=== PATIENT | male | born 1980 | race Caucasian/White ===

== ENCOUNTER 2016-09-26 14:26 | Emergency (ER) | payer BC, OTHER ==
[2016-09-26 14:40] VITALS: BP 140/102
--- NOTE | 2016-09-26 15:26 | XRay Report ---
BILATERAL KNEES, 2 VIEWS History: Pain after fall. Findings: Minimal osteoarthritic changes are identified in both knees. No evidence for fracture, bone lesion or joint effusion. Impression: Minimal degenerative changes. No acute process.
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
== END 2016-09-26 16:30 | disposition home or self-care (01) ==
LOC: ED 14:26
DX: S80.01XA Contusion of right knee, initial encounter (principal); S80.02XA Contusion of left knee, initial encounter; K21.9 Gastro-esophageal reflux disease without esophagitis; W18.30XA Fall on same level, unspecified, initial encounter; Y93.9 Activity, unspecified; Y92.9 Unspecified place or not applicable; Y99.9 Unspecified external cause status
CPT/HCPCS: 99283

== ENCOUNTER 2017-03-31 10:40 | Day surgery (SDC) | payer BC, OTHER ==
[2017-03-31] MEDS ORDERED: NACL BACTERIOSTATIC INFILTRATI ONE (10:57)
[2017-03-31] MEDS ORDERED: DILAUDID IV PRN (11:05)
--- NOTE | 2017-03-31 11:05 | Anesthesia Day of Surgery ---
Anesthesia Day of Surgery - Day of Surgery Patient Examined: Yes Patient is NPO: Yes
[2017-03-31] MEDS ORDERED: ceFAZolin 2 GM in NACL 0.9% 100 ML IV NR (11:09)
--- NOTE | 2017-03-31 11:09 | Anesthesia Consultation ---
Anesthesia Consult and Med Hx Date of service: 03/31/17 - Airway Anesthetic Teeth Evaluation: Good ROM Head & Neck: Adequate Mental/Hyoid Distance: Adequate Mallampati Class: Class II Intubation Access Assessment: Probably Good - Pulmonary Exam CTA: Yes - Cardiac Exam Cardiac Exam: RRR - Pre-Operative Health Status ASA Pre-Surgery Classification: ASA1 Proposed Anesthetic Plan: General - Pulmonary Hx Smoking: No Hx Sleep Apnea: No - Gastrointestinal Hx Gastroesophageal Reflux Disease: Yes (irritable bowel syndrome.) - Other Systems Hx Cancer: No
[2017-03-31] MEDS ORDERED: PERCOCET 5/325 PO PRN (11:30)
[2017-03-31] MEDS ORDERED: ZOFRAN IV PRN (11:30)
[2017-03-31] MEDS ORDERED: DILAUDID ONE (11:47)
[2017-03-31] MEDS ORDERED: DIPRIVAN 10 MG/ML IV ONE (11:47)
[2017-03-31] MEDS ORDERED: XYLOCAINE MPF 2% ONE (11:47)
[2017-03-31] MEDS ORDERED: QUELICIN ONE (11:48)
[2017-03-31] MEDS ORDERED: LACTATED RINGERS 1,000 ML IV SCH (12:00)
[2017-03-31] MEDS ORDERED: VERSED IV NR (12:00)
[2017-03-31] MEDS ORDERED: PEPCID PO NR (12:00)
[2017-03-31] MEDS ORDERED: MARCAINE 0.5% 0 ML INFILTRATI ONE (12:07)
[2017-03-31] MEDS ORDERED: MARCAINE-EPI/PF 0.5%-1:200,000 INFILTRATI ONE ×2 (12:07→12:45)
[2017-03-31] MEDS ORDERED: NUPERCAINAL ONE (12:07)
[2017-03-31] MEDS ORDERED: ZEMURON IV ONE (12:34)
[2017-03-31] MEDS ORDERED: ZOFRAN ONE (12:44)
[2017-03-31] MEDS ORDERED: DECADRON ONE (12:44)
[2017-03-31] MEDS ORDERED: NACL 0.9% IR ONE (12:45)
[2017-03-31] MEDS ORDERED: NUPERCAINAL PR ONE (12:49)
--- NOTE | 2017-03-31 12:49 | Discharge Summary ---
Short Stay Discharge Plan Activity: other (october d/c when stable and able to void. start sitz bath qid in am. surfak stool softner I po q am x 3. aleve I po q 6-8 hrs for breakthrough pain) Weight Bearing Status: Partial Weight Bearing (no prolonged sitting or straining ) Diet: other (high fiber diet) Wound: per your surgeon's advice Follow up with: MAYRA BAILEY MD [Staff Physician] - 04/04/17
[2017-03-31] MEDS ORDERED: ROBINUL ONE (12:56)
[2017-03-31] MEDS ORDERED: NEOSTIGMINE ONE (12:56)
--- NOTE | 2017-03-31 14:13 | Operative Report ---
PREOPERATIVE DIAGNOSIS: Thrombosed external hemorrhoid. POSTOPERATIVE DIAGNOSIS: Thrombosed external hemorrhoid. PROCEDURE: Hemorrhoidectomy. SURGEON: Misael Galvan MD ANESTHESIA: General. ESTIMATED BLOOD LOSS: Minimal. No drains or complications. PROCEDURE IN DETAIL: The patient was taken to the operating room, placed in jackknife position. Prepped and draped in usual sterile fashion. Inspection of the area revealed a large external thrombosed hemorrhoid at approximately 4 o'clock in the jackknife position. Some smaller internal hemorrhoids were noted, which were not clinically significant at this time. Attention was thus then focused to the symptomatic thrombosed external hemorrhoid. A 3-0 chromic suture was placed in a [id number] fashion to control the proximal portion of the hemorrhoid. Allis clamps were used to grasp the dentate line and Stanley was used to grasp the thrombosed hemorrhoid. A 15 blade was used to incise the skin. A submucosal hemorrhoidectomy was then performed using needle tip electrocautery and Kittner. The base of the hemorrhoid was then clamped with a hemostat and secured with a 3-0 chromic tie. The previously placed chromic suture was used to close the mucosa in interlocking fashion. The area was then carefully inspected for bleeding and noted to be dry. No evidence of any oozing or expanding submucosal hematomas was noted. A 0.5% Marcaine with epi was infiltrated over the entire for postoperative pain relief. A pressure dressing applied. The patient tolerated the procedure well and left the OR in stable condition. [facility]# [id number] ABEL/MARK
[2017-03-31] MEDS ORDERED: PERCOCET 5/325 PO SCH (15:00)
[2017-03-31 15:24] VITALS: BP 136/86
== END 2017-03-31 15:29 | disposition home or self-care (01) ==
LOC: OR 10:40
PROVIDERS: ATTEND Surgery
DX: K64.5 Perianal venous thrombosis (principal); K21.9 Gastro-esophageal reflux disease without esophagitis
CPT/HCPCS: 46320; 88304; J0330; J1100; J1170; J2250; J2405; J2704; J2710; J7120

== ENCOUNTER 2018-01-18 12:48 | Emergency (ER) | payer OTHER ==
[2018-01-18 12:59] VITALS: BP 160/104
[2018-01-18] MEDS ORDERED: TORADOL IM ONE (13:14)
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
--- NOTE | 2018-01-18 14:28 | XRay Report ---
FINAL REPORT EXAM: XR KNEE 3V LT HISTORY: left knee injury COMPARISON: None. TECHNIQUE: Two views of the left knee FINDINGS: There is medial and retropatellar joint space narrowing. There is no fracture or dislocation. There is no significant joint effusion. The overlying soft tissues are intact. IMPRESSION: Mild degenerative changes of the left knee without acute fracture or dislocation.
== END 2018-01-18 14:23 | disposition home or self-care (01) ==
LOC: ED 12:48
DX: S80.02XA Contusion of left knee, initial encounter (principal); K21.9 Gastro-esophageal reflux disease without esophagitis; M19.039 Primary osteoarthritis, unspecified wrist; M19.042 Primary osteoarthritis, left hand; M19.041 Primary osteoarthritis, right hand; V49.49XA Driver injured in collision with other motor vehicles in traffic accident, initial encounter; Y93.89 Activity, other specified; Y92.89 Other specified places as the place of occurrence of the external cause; Y99.8 Other external cause status
CPT/HCPCS: 73562; 96372; 99283; J1885